=== PATIENT | male | born 1945 | race Caucasian/White ===

== ENCOUNTER 2016-11-18 13:13 | Emergency (ER) | payer MEDICARE, OTHER ==
[~2016-11-18] VITALS: Ht 180.3 cm; Wt 100.0 kg
[~2016-11-18 13:13] MED LIST: ASPIRIN 81M81 MG/TA2 PO; CALCIUM 500 + D1 TA1 PO; CELEBREX 200MG200 MG PO; CIPRO 500MG TA500 MG PO; EPA FISH OIL1000 MG PO; FLEXERIL 1010 MG/TAB PO; HCTZ 25MG TAB25 MG PO; IRON324 M1 PO; LEVAQUIN 5500 MG/TA1 PO; LOPRESSOR 225 MG/TAB PO; MULTIPLE VITAMI1 CAP PO; NEXIUM 40MG40 MG PO; NORCO 325 MG-51 TAB PO; NORVASC 5MG5 MG/TAB PO; ZOCOR 20MG20 MG PO; ZOFRAN 4MG T4 MG/TAB PO
[2016-11-18 15:09] LABS: BASO % 0.6 % (0.0-2.0); EOS # 0.2 (0.0-0.7); EOS % 2.9 % (0-4.0); GRAN % 58.5 % (42.2-75.2); HEMATOCRIT 43.2 % (42.0-52.0); HEMOGLOBIN 15.2 g/dl (13.5-18.0); LYMPH # 1.4 (1.2-3.4); LYMPH % 27.7 % (20.0-51.0); MEAN CELL VOLUME 92 fl (80.0-100.0); MEAN CORPUSCULAR HEMOGLOBIN 32 pg (27.0-31.0); MEAN CORPUSCULAR HGB CONC 35 g/dl (33.0-37.0); MEAN PLATELET VOLUME 9.6 fl (7.4-10.4); MONO # 0.5 (0.1-0.6); MONO % 10.3 % (1.7-9.3); PLATELET COUNT 173 K/mm3 (130-400); REDCELL DISTRIBUTION WIDTH-CV 13.2 % (11.5-14.5); WHITE BLOOD COUNT 5.2 K/mm3 (4.8-10.8)
[2016-11-18 15:22] LABS: ADJUSTED CALCIUM 9.6 mg/dL (8.4-10.2); ALBUMIN 4.4 gm/dL (3.5-5.0); BILIRUBIN,TOTAL 1.1 mg/dL (0.0-1.0); C-REACTIVE PROTEIN 1.6 mg/dL (0.0-0.9); CALCIUM 9.9 mg/dL (8.4-10.2); CREATININE, serum 0.98 mg/dL (0.66-1.25); POTASSIUM 4.3 mmol/L (3.4-5.0); TOTAL PROTEIN 7.5 gm/dL (6.4-8.2)
[2016-11-18 15:47] LABS: PH 5 (5-8); SQUAMOUS EPITHELIAL None Seen /hpf; URINE APPEARANCE Clear; URINE BACTERIA None Seen /hpf; URINE BILIRUBIN Negative (NEGATIVE); URINE BLOOD Negative (NEGATIVE); URINE COLOR Yellow; URINE GLUCOSE Negative (NEGATIVE); URINE KETONE Negative (NEGATIVE); URINE RBC 0-2 /hpf; URINE UROBILINOGEN Negative (NEGATIVE); URINE WBC 0-2 /hpf
[2016-11-18] MEDS ORDERED: ULTRAM 50MG TAB50 MG PO (16:19)
[2016-11-18 16:25] VITALS: BP 134/70; PULSE 71; TEMP 98
== END 2016-11-18 16:33 | disposition home or self-care (01) ==
LOC: COL.ER 13:13
PROVIDERS: Nurse Practitioner
DX: M54.5 Low back pain (principal); I10 Essential (primary) hypertension

== ENCOUNTER → 2017-09-08 | Outpatient (CLI) | payer MEDICARE, OTHER ==
[~2017-09-08] MED LIST changes: +ULTRAM 50MG TAB50 MG PO
== END ==
LOC: COL.RAD 14:30
DX: J98.4 Other disorders of lung (principal); M47.814 Spondylosis without myelopathy or radiculopathy, thoracic region
CPT/HCPCS: J7050; Q9967

== ENCOUNTER 2017-09-20 13:30 | Emergency (ER) | payer MEDICARE, OTHER ==
[~2017-09-20] VITALS: Ht 182.9 cm; Wt 101.8 kg
[2017-09-20 13:35] VITALS: TEMP 98.9
[2017-09-20] MEDS ORDERED: ASPIRIN 81M81 MG/TA2 PO (15:47)
[2017-09-20] MEDS ORDERED: CALCIUM 600MG+D1 TAB PO (15:47)
[2017-09-20] MEDS ORDERED: PROTONIX 40MG T40 MG PO (15:49)
[2017-09-20] MEDS ORDERED: NATURAL IRON65 MG PO (15:49)
[2017-09-20] MEDS ORDERED: EPA FISH OIL1 SGL PO (15:49)
[2017-09-20] MEDS ORDERED: MULTI VITAMINS1 TAB PO (15:51)
[2017-09-20] MEDS ORDERED: ZOCOR 20MG20 MG PO (15:51)
[2017-09-20] MEDS ORDERED: HCTZ 25MG TAB25 MG PO (15:51)
[2017-09-20] MEDS ORDERED: VALTREX 50500 MG/TAB PO (15:52)
[2017-09-20] MEDS ORDERED: MOTRIN 200200 MG/TAB PO (15:52)
[2017-09-20] MEDS ORDERED: INDERAL40 MG PO (15:53)
[2017-09-20] MEDS ORDERED: LIPITOR20 MG PO (15:53)
[2017-09-20 16:02] LABS: BASO % 0.6 % (0.0-2.0); EOS # 0.2 (0.0-0.7); EOS % 4.1 % (0-4.0); GRAN # 3.2 (1.4-6.5); GRAN % 58.9 % (42.2-75.2); HEMATOCRIT 44.1 % (42.0-52.0); HEMOGLOBIN 15.4 g/dl (13.5-18.0); LYMPH # 1.3 (1.2-3.4); MEAN CELL VOLUME 93 fl (80.0-100.0); MEAN CORPUSCULAR HEMOGLOBIN 33 pg (27.0-31.0); MEAN CORPUSCULAR HGB CONC 35 g/dl (33.0-37.0); MEAN PLATELET VOLUME 9.3 fl (7.4-10.4); MONO # 0.6 (0.1-0.6); MONO % 11.2 % (1.7-9.3); PLATELET COUNT 156 K/mm3 (130-400); RED BLOOD COUNT 4.73 M/mm3 (4.20-5.60); REDCELL DISTRIBUTION WIDTH-CV 12.2 % (11.5-14.5)
[2017-09-20 16:07] LABS: CALCIUM 9.4 mg/dL (8.4-10.2); CREATININE, serum 1.02 mg/dL (0.66-1.25); POTASSIUM 4.4 mmol/L (3.4-5.0)
[2017-09-20 17:58] VITALS: BP 118/80; PULSE 75
== END 2017-09-20 18:11 | disposition home or self-care (01) ==
LOC: COL.ER 13:30
PROVIDERS: Emergency Medicine
DX: M79.662 Pain in left lower leg (principal); Z82.49 Family history of ischemic heart disease and other diseases of the circulatory system; Z79.82 Long term (current) use of aspirin

== ENCOUNTER → 2017-11-25 | Outpatient (CLI) | payer MEDICARE, OTHER ==
[~2017-11-25] MED LIST changes: +CALCIUM 600MG+D1 TAB PO; +EPA FISH OIL1 SGL PO; +INDERAL40 MG PO; +LIPITOR20 MG PO; +MOTRIN 200200 MG/TAB PO; +MULTI VITAMINS1 TAB PO; +NATURAL IRON65 MG PO; +PROTONIX 40MG T40 MG PO; +VALTREX 50500 MG/TAB PO
== END ==
LOC: COL.PUL 10:38
DX: R06.02 Shortness of breath (principal); R05 Cough; Z87.891 Personal history of nicotine dependence
CPT/HCPCS: J7674

== ENCOUNTER → 2018-03-04 | Outpatient (CLI) | payer MEDICARE, OTHER | LOC: COL.RAD 09:34 | DX: Z13.6 Encounter for screening for cardiovascular disorders (principal); I70.0 Atherosclerosis of aorta; I77.89 Other specified disorders of arteries and arterioles ==

== ENCOUNTER → 2019-10-01 | Outpatient (CLI) | payer MEDICARE, OTHER | LOC: COL.RAD 10:09 | DX: M43.9 Deforming dorsopathy, unspecified (principal); Z13.6 Encounter for screening for cardiovascular disorders; M47.816 Spondylosis without myelopathy or radiculopathy, lumbar region ==

== ENCOUNTER 2020-06-12 08:45 | Outpatient (RCR) | payer MEDICARE, OTHER | END 2020-06-15 | disposition home or self-care (01) | LOC: MKS.ESL.PT | DX: G20 Parkinson's disease (principal) ==

== ENCOUNTER 2020-06-12 09:30 | Outpatient (RCR) | payer MEDICARE, OTHER | END 2020-07-17 | disposition home or self-care (01) | LOC: WSST | DX: R49.0 Dysphonia (principal); G20 Parkinson's disease ==

== ENCOUNTER → 2021-01-12 | Outpatient (CLI) | payer MEDICARE, OTHER | LOC: COL.RAD 08:59 | DX: C61 Malignant neoplasm of prostate (principal); Z90.49 Acquired absence of other specified parts of digestive tract | CPT/HCPCS: A9503; Q9967 ==